=== PATIENT | male | born 1945 | race Caucasian/White ===

== ENCOUNTER 2018-10-25 15:19 | Emergency (ER) | payer MEDICARE, OTHER ==
[~2018-10-25] VITALS: Ht 170.2 cm; Wt 67.3 kg
[2018-10-25 15:22] VITALS: BP 162/81; TEMP 98.7
[2018-10-25] MEDS ORDERED: TYLENOL W/COD1 UDTAB PO (17:18)
[2018-10-25 17:37] VITALS: PULSE 70
== END 2018-10-25 17:38 | disposition home or self-care (01) ==
LOC: COL.ER 15:19
DX: S43.402A Unspecified sprain of left shoulder joint, initial encounter (principal); W11.XXXA Fall on and from ladder, initial encounter